=== PATIENT | female | born 1995 | race Two or more races ===

== ENCOUNTER → 2016-12-17 | Outpatient (CLI) | payer OTHER ==
--- NOTE | 2016-12-17 17:21 | US ---
EXAMINATION TYPE: US OB anatomy transabd DATE OF EXAM: 12/17/2016 4:14 PM COMPARISON: NONE HISTORY: LGA TECHNIQUE: Transabdominal (TA) EXAM MEASUREMENTS: GESTATIONAL AGE / DATING Physician Established: (26 weeks/ 6 days) EDC: 03/19/17 Dates by LMP: unknown by patient Dates by First Scan: first at this facility Dates by Current Scan: (26 weeks/ 1 days) EDC: 03/24/17 SURVEY IUP: Single PLACENTA: Posterior PREVIA: No previa JEYSON: 9.1 cm Normal CERVICAL LENGTH (transabdominal: norm > 3.0cm): 3.6 cm BIOMETRY PRESENTATION: Vertex LIE: Oblique BPD: 6.4 cm 26 weeks / 0 days HC: 24.4 cm 26 weeks / 4 days AC: 21.5 cm 26 weeks / 0 days FL: 4.7 cm 25 weeks / 5 days ESTIMATED WEIGHT IN GRAMS: 869 grams ESTIMATED WEIGHT IN LBS/OZS: 1 lbs. 15 oz. WEIGHT PERCENTAGE BASED ON ESTABLISHED DATE: 11 % HC/AC: 1.1 FL/AC: 22 HEART RATE: 155 bpm RHYTHM: Normal ANATOMY SEEN (within normal limits): * Lateral Vent (< 1 cm) ;0.7 cm * Cisterna Magna (< 1.1 cm; 0.7 cm * Nuchal Fold (< 0.6 cm); 0.5 cm * Cerebellum (varies with age)); 2.9 cm Choroid Plexus (bilateral) Midline Falx Cavus Septi Pellucidi Four Chamber Heart Outflow tracts: LVOT/RVOT Stomach Situs Nose / Lips Diaphragm Kidneys (bilateral) Bladder Cord Insert Three Vessel Cord Longitudinal Spine Transverse Spine Arms (bilateral) Legs (bilateral) TECHNOLOGIST IMPRESSION: single IUP , no previa, anatomy as above IMPRESSION: No complicating process is seen. I have no old exam to compare for evaluation of any IUGR.
== END | disposition home or self-care (01) ==
LOC: RADUSWWP 15:15
PROVIDERS: ATTEND Obstetrics & Gynecology
DX: O36.63X0 Maternal care for excessive fetal growth, third trimester, not applicable or unspecified (principal); Z3A.26 26 weeks gestation of pregnancy
CPT/HCPCS: 76811

== ENCOUNTER → 2017-01-10 | Outpatient (CLI) | payer OTHER ==
[2017-01-10 14:03] LABS: CH 28.5; CHCM 32.3; HCT 35.3 % (34.0-46.0); HDW 2.85; HGB 11.3 gm/dL (11.4-16.0); MCH 28.3 pg (25.0-35.0); MCV 88.5 fL (80.0-100.0); Mean Platelet Volume 6.8; RBC 3.98 m/uL (3.80-5.40); WBC 7.8 k/uL (3.8-10.6)
== END | disposition home or self-care (01) ==
LOC: LABWHC1 11:42
PROVIDERS: ATTEND Obstetrics & Gynecology
DX: Z34.03 Encounter for supervision of normal first pregnancy, third trimester (principal); Z3A.00 Weeks of gestation of pregnancy not specified
CPT/HCPCS: 36415; 82950; 85027

== ENCOUNTER → 2017-02-14 | Outpatient (CLI) | payer OTHER ==
--- NOTE | 2017-02-14 09:23 | US ---
EXAMINATION TYPE: US OB anatomy transabd third trimester DATE OF EXAM: 02/14/2017 8:27 AM COMPARISON: 12/17/2016 second trimester ultrasound HISTORY: large for dates TECHNIQUE: Transabdominal (TA) EXAM MEASUREMENTS: GESTATIONAL AGE / DATING Physician Established: (35 weeks/4 days) EDC: 03/18/2017 Dates by LMP: (35 weeks/3 days) EDC: 03/18/2017 Dates by First Scan: (34 weeks/4 days) EDC: 03/24/2017 Dates by Current Scan for: (34 weeks/3 days) EDC: 03/25/2017 SURVEY IUP: Single PLACENTA: Posterior PREVIA: none JEYSON: 13.8 cm Normal CERVICAL LENGTH (transabdominal: norm > 3.0cm): 3.7 cm BIOMETRY PRESENTATION: Vertex LIE: Oblique BPD: 8.7 cm 35 weeks / 0 days HC: 31.7 cm 35 weeks / 5 days AC: 30.2 cm 34 weeks / 1 days FL: 6.4 cm 32 weeks / 6 days ESTIMATED WEIGHT IN GRAMS: 2328 grams ESTIMATED WEIGHT IN LBS/OZS: 5 lbs. 2 oz. WEIGHT PERCENTAGE BASED ON ESTABLISHED DATE: 15 % HC/AC: 1.0 FL/AC: 21 HEART RATE: 149 bpm RHYTHM: Normal ANATOMY SEEN (within normal limits): Midline Falx Cavus Septi Pellucidi Four Chamber Heart Outflow tracts: LVOT/RVOT Stomach Situs Nose / Lips Diaphragm Kidneys (bilateral) Bladder Three Vessel Cord Longitudinal Spine Transverse Spine ANATOMY NOT SEEN: * Lateral Vent (< 1 cm) positional * Cisterna Magna (< 1.1 cm) positional * Nuchal Fold (< 0.6 cm) positional * Cerebellum (varies with age) positional Choroid Plexus (bilateral) positional Cord Insert crowding Arms (bilateral) crowding Legs (bilateral) crowding MATERNAL WALL MEASUREMENT: 4.1 cm from skin to anterior uterine wall (if exam limited due to body shi bitus). TECHNOLOGIST IMPRESSION: single fetus of 34 weeks 3 days consistent with fisrt OB scan Single live intrauterine gestation is redemonstrated. Normal cephalad presentation to fetus is curren tly seen. There is no ultrasound evidence for placenta previa. Amniotic fluid index is within normal limits. biometry measurements are within normal limits, weight is estimated lower limits of normal. Detailed anatomical survey is suboptimal due to advanced age and crowding of structures with sage boptimal evaluation of cranial structures noted above as well as bilateral extremities. Cranial struc tures and extremities were noted to appear within normal limits on second trimester ultrasound. Still images today show no suspicious abnormality in the other structures. IMPRESSION: As above.
== END | disposition home or self-care (01) ==
LOC: RADUSWWP 07:46
PROVIDERS: ATTEND Obstetrics & Gynecology
DX: O36.63X0 Maternal care for excessive fetal growth, third trimester, not applicable or unspecified (principal); Z3A.34 34 weeks gestation of pregnancy
CPT/HCPCS: 76811

== ENCOUNTER 2017-03-29 06:15 | Inpatient (IN) | payer OTHER ==
--- NOTE | 2017-03-28 13:53 | P.HPOB ---
History of Present Illness H&P Date: 03/28/17 Chief Complaint: Induction of labor This is a 21 y.o. female, 1, para 0, with an estimated date of confinement of 03/19/2017 based on 9 week US, estimated gestational age of 41-3/ 7 weeks who presents for induction of labor due to post-dates. She admits to good movement and has been getting NSTs twice weekly since her due date. She is feeling irregular contractions. labs: Blood type-A+ Antibody screen-neg Hemoglobin-12.1 HIV-NR Hepatitis B surface antigen-neg Quad screen-neg GC/Chlamydia-neg Rubella-immune RPR-NR 1 hr. 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 Review of Systems Ears, nose, mouth and throat: Denies headache, Denies sore throat Cardiovascular: Denies chest pain, Denies shortness of breath Gastrointestinal: Reports abdominal pain (irregular contracations) Genitourinary: Reports pelvic pain, Reports Integumentary: Denies pruritus, Denies rash Neurological: Denies numbness, Denies weakness Past Medical History Past Medical History: No Reported History History of Any Multi-Drug Resistant Organisms: None Reported Past Surgical History: No Surgical Hx Reported Past Psychological History: Depression, PTSD Additional Psychological History / Comment(s): pt states when she was 13 years old had problems and was on meication for a couple of weeks than off it. and hasnt had any problems . pt states she was in foster care at the time Smoking Status: Never smoker Past Alcohol Use History: None Reported Past Drug Use History: None Reported - Past Family History Mother Family Medical History: Hypertension Medications and Allergies Home Medications Medication Instructions Recorded Confirmed Type No Known Home Medications [No 11/09/16 03/19/17 History Known Home Medications] Allergies Allergy/AdvReac Type Severity Reaction Status Date / Time No Known Allergies Allergy Verified 03/19/17 16:48 Exam Osteopathic Statement: *. No significant issues noted on an osteopathic structural exam other than those noted in the History and Physical/Consult. HEENT: within normal limits Heart: regular rate and rhythm Lungs: clear to auscultation bilaterally Abdomen: heart tones: 140's Cervix: 1.5 cm/60%/-2 Extremities: neg. Bertha's. Assessment and Plan (1) Post term , 41 weeks Status: Acute Plan: Proceed with oxytocin induction of labor. Expectant management.
[2017-03-29] MEDS ORDERED: OXYTOCIN 30 UNITS/500 ML NS 30 UNIT in SALINE 1 500ML.BAG IV SCH ×2 (06:34→21:36)
[2017-03-29] MEDS ORDERED: LIDOCAINE 1% 20 ML VIAL (10MG/ML) FOR IV START INTRADERMA PRN (06:34)
[2017-03-29] MEDS ORDERED: OXYTOCIN 10 UNIT/ML 1 ML VIAL IM PRN (06:34)
[2017-03-29] MEDS ORDERED: LIDOCAINE 1% (PF) 10 MG/ML (30 ML SDV) SQ PRN (06:34)
[2017-03-29] MEDS ORDERED: CARBOPROST TROMETHAMINE 250 MCG/ML 1 ML AMP IM PRN (06:34)
[2017-03-29] MEDS ORDERED: TERBUTALINE 1 MG/ML VIAL SQ PRN (06:34)
[2017-03-29] MEDS ORDERED: METHYLERGONOVINE 0.2 MG/ML 1 ML AMP IM PRN (06:34)
[2017-03-29 06:39] VITALS: BMI 43.9
[2017-03-29] MEDS: LACTATED RINGERS 1,000 ML IV SCH ×3 (07:15→16:36)
[2017-03-29 08:32] LABS: Basophils % (A) 0 %; CH 27.1; CHCM 32.8; Eosinophils # (A) 0.1 k/uL (0-0.7); Eosinophils % (A) 1 %; HCT 32.8 % (34.0-46.0); HDW 2.89; HGB 10.6 gm/dL (11.4-16.0); Luc # (Auto) 0.15; Luc % (Auto) 2; Lymphocytes # (A) 1.6 k/uL (1.0-4.8); Lymphocytes % (A) 20 %; MCH 26.9 pg (25.0-35.0); MCHC 32.3 g/dL (31.0-37.0); MCV 83.1 fL (80.0-100.0); Mean Platelet Volume 7.1; Monocytes # (A) 0.3 k/uL (0-1.0); Monocytes % (A) 4 %; Neutrophils # (A) 6.1 k/uL (1.3-7.7); Neutrophils % (A) 74 %; RBC 3.94 m/uL (3.80-5.40); RDW 13.3 % (11.5-15.5); WBC 8.3 k/uL (3.8-10.6); WBC (Perox) 9.09
[2017-03-29] MEDS: BUTORPHANOL 1 MG/ML 1 ML VIAL IV PRN ×2 (09:43→11:45)
[2017-03-29] MEDS ORDERED: fentaNYL (PF) 50 MCG/ML 5 ML AMP ONE (13:05)
[2017-03-29] MEDS ORDERED: SODIUM CHLORIDE 0.9% 100 ML BAG ONE (13:05)
[2017-03-29] MEDS ORDERED: BUPIVACAINE (PF) 0.25% 30 ML VIAL ONE (13:05)
--- NOTE | 2017-03-29 21:28 | P.PROBDLV ---
Vaginal Delivery Note - . Vaginal Delivery Note: The patient progressed to complete dilation after oxytocin induction of labor and artificial rupture membranes with meconium-stained fluid noted. She did receive epidural anesthesia. Once reaching complete dilation, she began pushing. 's head came to a crown and then delivered across the perineum followed immediately by the body. Nose and mouth were bulb suctioned after delivery. Brisk cry was noted immediately. Cord was clamped and cut and was taken to warmer for evaluation. A viable female was noted with Apgars of 9 at 1 minute and 9 at 5 minutes and weight of 7 lbs. 2 oz. Placenta delivered shortly thereafter, intact, with a three-vessel cord. Uterus contracted after oxytocin was given and uterine massage was carried out. A gloved hand was placed into the intrauterine cavity and a few clots were removed. No further tissue was noted. Inspection of the perineum revealed a first-degree perineal laceration. This area was anesthetized with 1% lidocaine and then sutured with 3-0 Vicryl suture in a running locked fashion. Estimated blood loss is approximate 200 mL's. Both mother and are in stable condition.
[2017-03-29] MEDS ORDERED: HYDROCORTISONE 2.5% RECTAL CREAM 30 GM TUBE RECTAL PRN (21:36)
[2017-03-29] MEDS ORDERED: WITCH HAZEL 1 EACH MED..PAD TOPICAL PRN (21:36)
[2017-03-29] MEDS ORDERED: ACETAMINOPHEN TAB 325 MG TAB PO PRN (21:36)
[2017-03-29] MEDS ORDERED: ZOLPIDEM 5 MG TAB PO PRN (21:36)
[2017-03-29] MEDS ORDERED: BENZOCAINE/MENTHOL SPRAY 1 GM/SPRAY AEROSOL TOPICAL PRN (21:36)
[2017-03-29] MEDS ORDERED: diphenhydrAMINE 50 MG CAP PO PRN (21:36)
[2017-03-29] MEDS ORDERED: diphenhydrAMINE 25 MG CAP PO PRN (21:36)
[2017-03-29] MEDS ORDERED: LANOLIN CREAM 5 GM TUBE TOPICAL PRN (21:36)
[2017-03-29] MEDS ORDERED: Acetaminophen-Codeine 300-30mg TAB PO PRN (21:36)
[2017-03-29] MEDS ORDERED: diphenhydrAMINE 50 MG/ML 1 ML VIAL IVP PRN ×2 (21:36)
[2017-03-29] MEDS ORDERED: SIMETHICONE 80 MG CHEWABLE PO PRN (21:36)
[2017-03-29] MEDS: IBUPROFEN 600 MG TAB PO PRN (21:55)
[2017-03-30 07:31] LABS: Basophils % (A) 0 %; CH 27.6; CHCM 33.2; Eosinophils % (A) 0 %; HCT 28.7 % (34.0-46.0); HDW 2.92; HGB 9.6 gm/dL (11.4-16.0); Luc # (Auto) 0.13; Luc % (Auto) 1; Lymphocytes # (A) 1.6 k/uL (1.0-4.8); Lymphocytes % (A) 16 %; MCH 27.9 pg (25.0-35.0); MCHC 33.5 g/dL (31.0-37.0); MCV 83.3 fL (80.0-100.0); Mean Platelet Volume 7.1; Monocytes # (A) 0.3 k/uL (0-1.0); Monocytes % (A) 3 %; Neutrophils # (A) 8.2 k/uL (1.3-7.7); Neutrophils % (A) 80 %; RBC 3.44 m/uL (3.80-5.40); RDW 13.4 % (11.5-15.5); WBC 10.3 k/uL (3.8-10.6); WBC (Perox) 10.38
[2017-03-30] MEDS: SENNOSIDES-DOCUSATE SODIUM 1 EACH TAB PO SCH ×2 (07:55→19:48)
[2017-03-30] MEDS: Acetaminophen-Codeine 300-30mg TAB PO PRN (07:55)
--- NOTE | 2017-03-30 12:50 | P.PNOBGVD ---
Subjective - Subjective Principal diagnosis: Status post vaginal delivery day #1 Interval history: Patient is doing well. She is breast-feeding without difficulty. She is complaining of some cramping while she does breast-feed. Lochia is decreasing. Pain is well-controlled. Patient reports: Reports appetite normal, Reports voiding normally, Reports pain well controlled, Reports ambulating normally [place]: doing well, nursing well Objective - Latest Vital Signs Latest vital signs: Vital Signs Temp Pulse Resp BP Pulse Ox 03/30/17 08:00 97.7 F 99 18 96/55 03/30/17 03:30 97.9 F 99 16 100/63 97 03/29/17 23:16 96.9 F L 112 H 18 102/54 97 03/29/17 22:46 130 H 18 124/63 03/29/17 22:16 97.6 F 148 H 18 125/77 03/29/17 22:01 18 136/84 03/29/17 21:46 98.2 F 109 H 18 126/71 100 03/29/17 21:31 118 H 18 121/62 03/29/17 21:16 98.5 F 104 H 18 138/71 100 Intake and Output 03/29/17 03/30/17 03/30/17 22:59 06:59 14:59 Output Total 700 Balance -700 Output: Urine 500 Estimated Blood Loss 200 Other: # Voids 1 1 - Exam Extremities: Present: normal. Absent: tenderness, edema Abdomen: Present: normal appearance, soft. Absent: distention, tenderness Uterus: Present: normal, firm. Absent: tenderness - Labs Labs: Abnormal Lab Results - Last 24 Hours (Table) 03/30/17 Range/Units 07:11 RBC 3.44 L (3.80-5.40) m/uL Hgb 9.6 L (11.4-16.0) gm/dL Hct 28.7 L (34.0-46.0) % Neutrophils # 8.2 H (1.3-7.7) k/uL Assessment and Plan (1) Post term , 41 weeks Current Visit: Yes Status: Acute Code(s): O48.0 - POST-TERM ; Z3A.41 - 41 WEEKS GESTATION OF SNOMED Code(s): 963614624 (2) Vaginal delivery Narrative/Plan: Impression is status post vaginal delivery day #1. Plan is to continue care today and discharge home tomorrow. Current Visit: Yes Status: Acute Code(s): O80 - ENCOUNTER FOR FULL-TERM UNCOMPLICATED DELIVERY SNOMED Code(s): 479597502
[2017-03-30] MEDS: IBUPROFEN 600 MG TAB PO PRN ×2 (16:47→23:26)
[2017-03-31] MEDS: Acetaminophen-Codeine 300-30mg TAB PO PRN (04:44)
[2017-03-31 08:54] VITALS: BP 108/63; PULSE 95; RESP 20; TEMP 97.9
[2017-03-31] MEDS: SENNOSIDES-DOCUSATE SODIUM 1 EACH TAB PO SCH (08:54)
--- NOTE | 2017-03-31 10:23 | P.DS ---
Providers Date of admission: 03/29/17 06:19 Expected date of discharge: 03/31/17 Attending physician: Devora Kirby Primary care physician: Devora Kirby - Discharge Diagnosis(es) (1) Post term , 41 weeks Current Visit: Yes Status: Acute (2) Vaginal delivery Current Visit: Yes Status: Acute Hospital Course: This is a 21-year-old female 1 para 0 at 41-3/7 weeks who presented for induction of labor. She underwent oxytocin induction of labor and delivered vaginally a viable female infant on 03/29/2017 with scores of 9 at 1 minute and 9 at 5 minutes and infant weight of 7 lbs. 2 oz. Her course has been essentially uncomplicated. She initially was breast-feeding but has switched to bottle feeding. Lochia is decreasing. Pain is fairly well controlled with ibuprofen. Vital signs are stable. Abdomen is soft with fundus firm and nontender. Extremities show negative Homans. Impression is status post vaginal delivery day #2. Plan is to discharge home today. Routine instructions are given. She will be given a prescription for a breast pump. She also will be given a prescription for ibuprofen. She is advised follow-up in the office in 6 weeks for a check. She is advised to call the office if she has any further questions or concerns prior to her appointment time. Procedures: Spontaneous vaginal delivery of a viable female infant on 03/29/2017 Patient Condition at Discharge: Stable Plan - Discharge Summary New Discharge Prescriptions: Ibuprofen [Motrin] 600 mg PO Q6HR PRN #60 tab PRN Reason: Mild Pain Or Fever >= 100.5 Discharge Medication List Ibuprofen [Motrin] 600 mg PO Q6HR PRN #60 tab 03/31/17 [Rx] Follow up Appointment(s)/Referral(s): Devora Kirby DO [Primary Care Provider] - 1 Week Activity/Diet/Wound Care/Special Instructions: Instructions 1. Do not begin any exercise program for 3 weeks. 2. Do not resume sexual relations for 3 weeks or longer if uncomfortable. 3. You may take tub baths or showers at any time. 4. You may use tampons if desired after 3 weeks. 5. Keep the area of episiotomy (stitches) clean and dry. 6. If you are not nursing, wear a good fitting, supportive bra during the day and limit fluid intake for at least 1 week to prevent breast engorgement. 7. Call the office, [phone], within the next week to make appointment for your 6 week checkup if it has not already been made. 8. Report any of the following occurrences to the doctor promptly: a. Heavy, excessive bleeding b. Chills, fever c. Burning or frequency of urination d. Pain or redness and breasts if nursing e. Increasing pain or swelling in episiotomy (stitches). In addition to the above instructions, the following additional should be followed: 1. No heavy lifting or straining (exercising) until after 6 week checkup. 2. Keep abdominal incision clean and dry: You may wear a dressing if more comfortable. 3. Make office appointment for 10 days after going home or as instructed by her doctor. Discharge Disposition: HOME SELF-CARE
[2017-03-31] MEDS: IBUPROFEN 600 MG TAB PO PRN (12:44)
== END 2017-03-31 14:10 | disposition home or self-care (01) | DRG 775 ==
LOC: 4FBP 06:19
PROVIDERS: ADMIT Obstetrics & Gynecology; ATTEND Obstetrics & Gynecology
PROC: 00HU33Z Insertion of Infusion Device into Spinal Canal, Percutaneous Approach (ICD-10-PCS; principal; 2017-03-29)
PROC: 3E033VJ Introduction of Other Hormone into Peripheral Vein, Percutaneous Approach (ICD-10-PCS; principal; 2017-03-29)
PROC: 4A1H74Z Monitoring of Products of Conception, Cardiac Electrical Activity, Via Natural or Artificial Opening (ICD-10-PCS; principal; 2017-03-29)
PROC: 3E0R3CZ (ICD-10-PCS; principal; 2017-03-29)
PROC: 10H073Z Insertion of Monitoring Electrode into Products of Conception, Via Natural or Artificial Opening (ICD-10-PCS; principal; 2017-03-29)
PROC: 10907ZC Drainage of Amniotic Fluid, Therapeutic from Products of Conception, Via Natural or Artificial Opening (ICD-10-PCS; principal; 2017-03-29)
PROC: 10E0XZZ Delivery of Products of Conception, External Approach (ICD-10-PCS; principal; 2017-03-29)
PROC: 0HQ9XZZ Repair Perineum Skin, External Approach (ICD-10-PCS; principal; 2017-03-29)
DX: O48.0 Post-term pregnancy (principal); O77.0 Labor and delivery complicated by meconium in amniotic fluid; Z37.0 Single live birth; Z3A.41 41 weeks gestation of pregnancy; O70.0 First degree perineal laceration during delivery
CPT/HCPCS: 85025; 88307